=== PATIENT | female | born 1975 | race African-American/Black ===

== ENCOUNTER 2016-12-27 13:44 | Inpatient (IN) | payer OTHER ==
[2016-12-27] MEDS ORDERED: ACETAMINOPHEN 325 MG TABLET (FP) PO ONE (14:41)
[2016-12-27 14:56] LABS: URINE APPEARANCE SLCLOUDY; URINE BILIRUBIN NEGATIVE (NEGATIVE); URINE COLOR YELLOW; URINE GLUCOSE (UA) NEGATIVE (NEGATIVE); URINE KETONE 1+ (NEGATIVE); URINE NITRITE NEGATIVE (NEGATIVE); URINE UROBILINOGEN NEGATIVE E.U./dl (0.2-1.0)
[2016-12-27 15:12] LABS: URINE BLOOD 3+ (NEGATIVE); URINE LEUK ESTERASE 1+ (NEGATIVE); URINE PROTEIN 2+ (NEGATIVE)
[2016-12-27] MEDS ORDERED: SODIUM CHLORIDE 1,000 ML IV STA ×3 (15:33→21:32)
[2016-12-27 15:41] LABS: URINE HYALINE CAST 5 /lpf; URINE MUCUS RARE; URINE RBC 134 /hpf (0-3); URINE WBC 24 /hpf (3-5)
--- NOTE | 2016-12-27 15:43 | PDOC ---
History of Present Illness - General Chief Complaint: Pain, Acute Stated Complaint: FEVER PELVIC PAIN Time Seen by Provider: 12/27/16 14:58 History Source: Patient Exam Limitations: No Limitations - History of Present Illness Travel History: No Initial Comments: 12/27/16 15:53 41-year-old female initially seen in fast track complaining of fever, flank pain , dysuria, now with CVA tenderness. Patient states had went to her [facility]ER[facility] was initially going to treat her but when patient was found to have CVA tenderness with fever she decided to send patient to the ER for further evaluation. Patient states has had a urinary tract infection in the past over 6 years ago which responded to antibiotics and denies any admission. Patient states no medical history and denies any irregular menses or vaginal discharge. Patient denies renal colic or diabetes. Timing/Duration: reports: constant, getting worse Quality: reports: moderate, cramping Abdominal Pain Onset Location: reports: flank (left) Pain Radiation: reports: no radiation Activities at Onset: reports: none Aggravating Factors: improves with: None Alleviating Factors: improves with: None Past History - Past Medical History Allergies/Adverse Reactions: Allergies Allergy/AdvReac Type Severity Reaction Status Date / Time No Known Allergies Allergy Verified 12/27/16 13:48 Home Medications: Ambulatory Orders Iron 1 tab PO DAILY 12/28/16 Vitamin C 1 tab PO DAILY 12/28/16 Other medical history: FIBROIDS - Reproductive History LMP Normal: Yes Is Patient Now?: No - Psycho/Social/Smoking Cessation Hx Suicidal Ideation: No Smoking History: Never smoked Hx Alcohol Use: Yes (OCCASIONALLY) Drug/Substance Use Hx: No Substance Use Type: Marijuana Patient Lives Alone: No Lives with/in: spouse/SO Review of Systems - Review of Systems Able to Perform ROS?: Yes Constitutional: Yes: Chills, Fever HEENTM: No: Symptoms Reported Cardiac (ROS): No: Symptoms Reported ABD/GI: Yes: Nausea (mild), Abdominal cramping : Yes: Dysuria, Frequency, Flank Pain (left) Musculoskeletal: No: Symptoms Reported Integumentary: No: Symptoms Reported Neurological: No: Symptoms reported Endocrine: No: Symptoms Reported Hematologic/Lymphatic: No: Symptoms Reported *Physical Exam - Vital Signs Last Vital Signs Temp Pulse Resp BP Pulse Ox 101.5 F H 140 H 18 128/77 98 12/27/16 13:48 12/27/16 13:48 12/27/16 13:48 12/27/16 13:48 12/27/16 13:48 - Physical Exam General Appearance: Yes: Nourished, Appropriately Dressed. No: Apparent Distress HEENT: negative: Pale Conjunctivae Neck: positive: Supple Respiratory/Chest: positive: Lungs Clear, Normal Breath Sounds. negative: Respiratory Distress, Accessory Muscle Use Cardiovascular: positive: Regular Rhythm, Tachycardia. negative: Murmur Gastrointestinal/Abdominal: positive: Soft, Tenderness (left flank) Musculoskeletal: positive: CVA Tenderness (L) Extremity: positive: Normal Capillary Refill. negative: Pedal Edema Integumentary: positive: Normal Color, Warm, Moist Neurologic: positive: Motor Strength 5/5 (ambulatory) ED Treatment Course - LABORATORY CBC & Chemistry Diagram: 12/28/16 06:00 12/28/16 06:00 - ADDITIONAL ORDERS Additional order review: Laboratory Results 12/27/16 14:33 Urine Color Yellow Urine Appearance Slcloudy Urine pH 5.0 Ur Specific [place] 1.019 Urine Protein 2+ H Urine Glucose (UA) Negative Urine Ketones 1+ H Urine Blood 3+ H Urine Nitrite Negative Urine Bilirubin Negative Urine Urobilinogen Negative Ur Leukocyte Esterase 1+ H Urine HCG, Qual Negative - RADIOLOGY Radiology Studies Ordered: Category Date Time Status SPIRAL- RENAL-STONE CT [CT] Stat CT Scan 12/27/16 15:33 Ordered - Medications Given in the ED: ED Medications Discontinued Medications Generic Name Dose Route Start Last Admin Trade Name Freq PRN Reason Stop Dose Admin Acetaminophen 650 mg 12/27/16 14:41 12/27/16 14:43 Tylenol - PO 12/27/16 14:42 650 mg ONCE ONE Administration Medical Decision Making - Medical Decision Making 12/27/16 15:56 Patient with urinary complaints now with left CVA tenderness and fever. Patient has no history of immunosuppression and concerning for pilonidal. Patient ordered for basic labs, fluids, IV Levaquin with cultures. 12/27/16 16:58 Laboratory Tests 12/27/16 14:33 Urine Protein 2+ H Urine Ketones 1+ H Urine Blood 3+ H Urine Urobilinogen Negative Ur Leukocyte Esterase 1+ H Urine RBC 134 Urine WBC 24 Urine HCG, Qual Negative patient is currently menstruating. 12/27/16 18:09 Laboratory Tests 12/27/16 12/27/16 12/27/16 16:51 16:51 16:55 WBC 20.3 H Hgb 9.8 L Hct 29.8 L Neutrophils % 75.8 Monocytes % 13.9 H Sodium Pending Potassium Pending Chloride Pending Carbon Dioxide Pending Anion Gap Pending BUN Pending Creatinine Pending Random Glucose Pending Lactic Acid 1.320 AST Pending ALT Pending Due to elevated white count, fever and tachycardia along with clinical presentation I have recommended the patient be admitted to observation at least. Patient states does not want to stay. Case also discussed with hospitalist who states patient should actually be an admission secondary meeting sepsis criteria. Patient will discuss our medical recommendations. 12/27/16 18:21 Repeat vitals done patient still slightly tachycardic at 102. Patient ordered for second bag of IV fluid and will be admitted to [facility] under the hospitalist. Case discussed with Dr. Medina and accepted the patient *DC/Admit/Observation/Transfer Diagnosis at time of Disposition: Pyelonephritis Sepsis Qualifiers: Sepsis type: sepsis due to unspecified organism Qualified Code(s): A41.9 - Sepsis, unspecified organism - Discharge Dispostion Admit: Yes
[2016-12-27] MEDS ORDERED: LEVOFLOXACIN 750 MG IVPB 150 ML IVPB ONE ×2 (15:50→16:40)
[2016-12-27 17:40] LABS: BASOPHIL 0.3 % (0-2.0); MCHC 32.9 g/dl (32.0-36.0); MEAN CELL VOLUME 85.1 fl (80-96); MEAN PLT VOLUME 8.9 fl (7.5-11.1); NEUTROPHILS 75.8 % (42.8-82.8); PLATELET COUNT 317 K/MM3 (134-434); RDW 14.6 % (11.6-15.6); WHITE BLOOD COUNT 20.3 K/mm3 (4.0-10.0)
[2016-12-27] MEDS ORDERED: oxyCODONE HCL 5 MG TABLET PO PRN (20:10)
[2016-12-27] MEDS ORDERED: ZOLPIDEM TARTRATE 5 MG TABLET PO PRN (20:10)
--- NOTE | 2016-12-27 20:19 | PN ---
<Manuel Morrissey - Last Filed: 12/27/16 20:19> Teaching Attending Note Name of Resident: Cedric Machuca ATTENDING PHYSICIAN STATEMENT I saw and evaluated the patient. I reviewed the resident's note and discussed the case with the resident. I agree with the resident's findings and plan as documented. SUBJECTIVE: OBJECTIVE: ASSESSMENT AND PLAN: <Aidan Allen - Last Filed: 12/27/16 21:46> Teaching Attending Note ATTENDING PHYSICIAN STATEMENT I saw and evaluated the patient. I reviewed the resident's note and discussed the case with the resident. I agree with the resident's findings and plan as documented. SUBJECTIVE: Patient is a 41-year-old female initially with a past medical history of fibroids and UTIs who presented with fever and tenderness to her left flank. The patient stated that she had gone to her [employer] to treat dysuria and UTI symptoms. Patient stated that when she presented to her [employer] she was found to have CVA tenderness with and fever and was sent to the ER for further evaluation. Patient stated that she has had a urinary tract infections in the past in which responded to antibiotics. Patient reports that she is currently on menses but denied any medical history of irregular menses or vaginal discharge. OBJECTIVE: Vital Signs: Last Vital Signs Temp Pulse Resp BP Pulse Ox 99.2 F 99 H 17 127/87 99 12/27/16 18:23 12/27/16 19:05 12/27/16 19:05 12/27/16 19:05 12/27/16 19:05 Physical Exam: GEN: NAD HEENT: NCAT, PERRL CARD: RRR, S1 S2 RESP: CTAB ABD: Lower abdominal tenderness, BWS x4 EXT: - CCE Labs: CBCD WBC 20.3 K/mm3 (4.0-10.0) H 12/27/16 16:51 RBC 3.50 M/mm3 (3.60-5.2) L 12/27/16 16:51 Hgb 9.8 GM/dL (10.7-15.3) L 12/27/16 16:51 Hct 29.8 % (32.4-45.2) L 12/27/16 16:51 MCV 85.1 fl (80-96) 12/27/16 16:51 MCHC 32.9 g/dl (32.0-36.0) 12/27/16 16:51 RDW 14.6 % (11.6-15.6) 12/27/16 16:51 Plt Count 317 K/MM3 (134-434) 12/27/16 16:51 MPV 8.9 fl (7.5-11.1) 12/27/16 16:51 ASSESSMENT AND PLAN: Patient is a 41-year-old female initially with a PMHx of fibroids who presented with fever and tenderness to her left flank. 41 YOF who presented with fever and left flank pain being admitted for sepsis 1.Sepsis most likely due to pyelonephritis -Stat CMP -POMPA culture -Zosyn 3.375 Q6H if creatinine normal -Repeat lactic acid -IVF 2. Normocytic anemia -Iron studies 3. DVT PPX -SCDs Admit to med surg. Documentation prepared by Aidan Allen, acting as medical care evaluation specialist for Dr. Manuel Morrissey MD.
--- NOTE | 2016-12-27 20:33 | HP ---
CHIEF COMPLAINT: burning urination and fever/. PCP: HISTORY OF PRESENT ILLNESS: 41 yo F with no sign PMHx presents with 4 day history of burning urination and fevers. She Initially noticed symptoms last week on . 12/22/16. She had just started he menses and had some accompanying dysuria. She has had UTI in past and knew the symptoms. She tried OTC AZO with minimal relief. She made an appointment to see PCP and found to have UTI with fevers and CVA tendernes and sent directly to ER. She is currently menstruating Denies CP,HINTON, SOB, abdominal pain, n/v. ER course was notable for: (1)UA shows UTI (2)Sepsis criteria met - WBC 20.3, HR 140, 101.4 + UTI (3)UC and BC sent Recent Travel: Denies PAST MEDICAL HISTORY: Uterine fibroids. PAST SURGICAL HISTORY: D&C Social History: Smoking: NO Alcohol: Glass of wine daily Drugs: NO Family History: Allergies No Known Allergies Allergy (Verified 12/27/16 13:48) HOME MEDICATIONS: Home Medications Medication Instructions Recorded Multivitamin [Poly-Vitamin] 1 each PO DAILY 12/27/16 REVIEW OF SYSTEMS CONSTITUTIONAL: (+)fever, chills, diaphoresis Absent: , generalized weakness, malaise, loss of appetite, weight change HEENT: Absent: rhinorrhea, nasal congestion, throat pain, throat swelling, difficulty swallowing, mouth swelling, ear pain, eye pain, visual changes CARDIOVASCULAR: Absent: chest pain, syncope, palpitations, irregular heart rate, lightheadedness , peripheral edema RESPIRATORY: Absent: cough, shortness of breath, dyspnea with exertion, orthopnea, wheezing, stridor, hemoptysis GASTROINTESTINAL: Absent: abdominal pain, abdominal distension, nausea, vomiting, diarrhea, constipation, melena, hematochezia GENITOURINARY: (+)dysuria, frequency,flank pain Absent: , urgency, hesitancy, hematuria, , genital pain MUSCULOSKELETAL: Absent: myalgia, arthralgia, joint swelling, back pain, neck pain SKIN: Absent: rash, itching, pallor HEMATOLOGIC/IMMUNOLOGIC: Absent: easy bleeding, easy bruising, lymphadenopathy, frequent infections ENDOCRINE: Absent: unexplained weight gain, unexplained weight loss, heat intolerance, cold intolerance NEUROLOGIC: Absent: headache, focal weakness or paresthesias, dizziness, unsteady gait, seizure, mental status changes, bladder or bowel incontinence PSYCHIATRIC: Absent: anxiety, depression, suicidal or homicidal ideation, hallucinations. PHYSICAL EXAMINATION Vital Signs - 24 hr 12/27/16 12/27/16 18:23 19:05 Temperature 99.2 F Pulse Rate [ 102 H 99 H Left] Respiratory 16 17 Rate Blood Pressure 123/79 127/87 [Arm] O2 Sat by Pulse 99 99 Oximetry (%) GENERAL: Awake, alert, and fully oriented, in no acute distress. HEAD: Normal with no signs of trauma. EYES: Pupils equal, round and reactive to light, extraocular movements intact, sclera anicteric, conjunctiva clear. No lid lag. EARS, NOSE, THROAT: Ears normal, nares patent, oropharynx clear without exudates. Moist mucous membranes. NECK: Normal range of motion, supple without lymphadenopathy, JVD, or masses. LUNGS: Breath sounds equal, clear to auscultation bilaterally. No wheezes, and no crackles. No accessory muscle use. HEART: Regular rate and rhythm, normal S1 and S2 without murmur, rub or gallop. ABDOMEN: Soft, nontender, not distended, normoactive bowel sounds, no guarding, no rebound, no masses. No hepatomegaly or splenomegaly. MUSCULOSKELETAL: Normal range of motion at all joints. No bony deformities or tenderness. No CVA tenderness. UPPER EXTREMITIES: 2+ pulses, warm, well-perfused. No cyanosis. No clubbing. Cap refill <2 seconds. No peripheral edema. LOWER EXTREMITIES: 2+ pulses, warm, well-perfused. No calf tenderness. No peripheral edema. NEUROLOGICAL: Cranial nerves II-XII intact. Normal speech. Normal gait. PSYCHIATRIC: Cooperative. Good eye contact. Appropriate mood and affect. SKIN: Warm, dry, normal turgor, no rashes or lesions noted. ASSESSMENT/PLAN: 41 yo F with no sign PMHx admitted for sepsis 2/2 pyelonephritis. Problem List - Problem (1) Pyelonephritis Assessment/Plan: * IVF NS @125ml/hr * pain control with Oxycodone 5mg Q4hr * Repeat CMP in AM * One time dose of Zosyn ordered * Consulted Dr. Mendoza ID. (2) Sepsis Assessment/Plan: * IVF NS @125ml/hr * repeat Lactic Acid in AM * Quintanilla Culture * ID consulted * Zosyn x1 given * tylenol prn fever. (3) DVT prophylaxis Assessment/Plan: * Heparin 5000 units SQ BID. Visit type - Emergency Visit Emergency Visit: Yes ED Registration Date: 12/27/16 Care time: The patient presented to the Emergency Department on the above date and was hospitalized for further evaluation of their emergent condition. - New Patient This patient is new to me today: Yes Date on this admission: 12/28/16 - Critical Care Critical Care patient: No
[2016-12-27 21:04] LABS: ALK PHOS 65 U/L (45-117); ANION GAP 10 (8-16); BILIRUBIN,TOTAL 0.3 mg/dL (0.2-1.0); CALCIUM 8.3 mg/dL (8.5-10.1); CO2 25 mmol/L (21-32); GLUCOSE,RANDOM 90 mg/dL (74-106); SGOT/AST 12 U/L (15-37); SGPT/ALT 18 U/L (12-78); TOT PROT 7.3 g/dl (6.4-8.2)
[2016-12-27] MEDS ORDERED: PIPERACILLIN/TAZOB 4.5 GM/100 ML PRE-DOCKED IVPB ONE (22:00)
[2016-12-27] MEDS ORDERED: HEPARIN NA (PORCINE) 5,000 UNITS/ML 1ML VIAL SQ SCH (22:00)
[2016-12-27] MEDS ORDERED: DOCUSATE SODIUM 100 MG CAPSULE (FP) PO ONE (22:43)
[2016-12-27] MEDS ORDERED: HEPARIN NA (PORCINE) 5,000 UNITS/ML 1ML VIAL ONE (22:43)
[2016-12-27] MEDS ORDERED: PIPERACILLIN/TAZOB 4.5 GM 100 ML IVPB ONE (22:44)
[2016-12-27] MEDS: DOCUSATE SODIUM 100 MG CAPSULE (FP) PO SCH (23:58)
[2016-12-28] MEDS ORDERED: ACETAMINOPHEN 325 MG TABLET (FP) ONE (01:17)
[2016-12-28 02:46] LABS: ALBUMIN 2.9 g/dl (3.4-5.0); ALK PHOS 61 U/L (45-117); ANION GAP 8 (8-16); BILIRUBIN,TOTAL 0.4 mg/dL (0.2-1.0); CALCIUM 8.1 mg/dL (8.5-10.1); CO2 27 mmol/L (21-32); CREATININE 0.8 mg/dL (0.55-1.02); GLUCOSE,RANDOM 89 mg/dL (74-106); SGOT/AST 14 U/L (15-37); SGPT/ALT 15 U/L (12-78)
[2016-12-28] MEDS: SODIUM CHLORIDE 1,000 ML IV SCH ×2 (03:58→13:58)
[2016-12-28 04:19] VITALS: BMI 28.4
[2016-12-28 07:52] LABS: BASOPHIL 0.3 % (0-2.0); EOSINOPHIL 0.1 % (0-4.5); MCH 27.8 pg (25.7-33.7); MCHC 32.7 g/dl (32.0-36.0); MEAN CELL VOLUME 85.1 fl (80-96); MEAN PLT VOLUME 8.5 fl (7.5-11.1); NEUTROPHILS 74.1 % (42.8-82.8); PLATELET COUNT 283 K/MM3 (134-434); RDW 14.7 % (11.6-15.6); WHITE BLOOD COUNT 12.9 K/mm3 (4.0-10.0)
[2016-12-28 08:19] LABS: ALBUMIN 2.6 g/dl (3.4-5.0); ALK PHOS 51 U/L (45-117); ANION GAP 9 (8-16); BILIRUBIN,TOTAL 0.3 mg/dL (0.2-1.0); CALCIUM 7.8 mg/dL (8.5-10.1); CO2 25 mmol/L (21-32); CREATININE 0.7 mg/dL (0.55-1.02); GLUCOSE,RANDOM 84 mg/dL (74-106); MAGNESIUM 2.2 mg/dL (1.8-2.4); PHOSPHOROUS 2.4 mg/dL (2.5-4.9); SGOT/AST 13 U/L (15-37); SGPT/ALT 17 U/L (12-78); TOT PROT 6.6 g/dl (6.4-8.2)
[2016-12-28] MEDS: DOCUSATE SODIUM 100 MG CAPSULE (FP) PO SCH ×2 (10:49→21:51)
--- NOTE | 2016-12-28 11:11 | PN ---
Progress Note (short form) - Note Progress Note: ID Consult dictated UTI/ Sepsis secondary to UTI Probable acute L pyelonephritis Leukocytosis Await c/s Empiric cefepime Renal sonogram
[2016-12-28] MEDS ORDERED: CEFEPIME HCL 2 GM VIAL (RESTRICTED TO ID) IVPB SCH (11:15)
[2016-12-28] MEDS: CEFEPIME 2 GM in DEXTROSE 5%-WATER - 100 ML IVPB SCH ×2 (12:30→17:54)
[2016-12-28] MEDS: ACETAMINOPHEN 325 MG TABLET (FP) PO PRN ×2 (13:58→22:35)
--- NOTE | 2016-12-28 14:10 | CONS ---
DATE OF CONSULTATION: DATE OF DICTATION: 12/28/2016 The patient is a 41-year-old female, previously healthy, evaluated for pyelonephritis. The patient had developed symptoms of urinary tract infection 4 to 5 days ago. She began to experience some dysuria, as well as some left flank discomfort, and subjective fever. 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 She was referred to the emergency room for further evaluation. In the emergency room, the patient was noted to have a fever of 101.5, white blood cell count of 20,000, urinalysis with pyuria. She was empirically treated with Levaquin and Zosyn. The urine culture is now growing a non-lactose dredge mechanic. The patient has been previously healthy. She reports having a urinary tract infection years ago. She is nondiabetic. PAST MEDICAL HISTORY: Positive for uterine fibroids. ALLERGIES: No known allergies. MEDICATIONS: Include Tylenol, Ambien, Colace, oxycodone, Levaquin, Zosyn. SOCIAL HISTORY: She lives at home. 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 Nonsmoker. Occasional EtOH. SYSTEMS REVIEW: Neurologic: No loss of consciousness, seizure activity, focal weakness. Cardiac: Negative chest pain or palpitations. Respiratory: Negative cough or sputum production. Gastrointestinal: Negative vomiting or diarrhea. Genitourinary: As per HPI. LABORATORY DATA: White count on admission 20.3, presently 12.9, hematocrit 26.9, platelets 283. Urinalysis 24 white cells. Blood culture is pending. Urine culture: Non-lactose dredge mechanic. PHYSICAL EXAMINATION: General: On physical examination, she is awake and alert. She is in no acute distress. Not acutely toxic appearing. Vital signs: Temperature 98.4, T-max 101.5; blood pressure 119/73; pulse 101 and regular; respirations 20 per minute. Eyes: Sclerae are anicteric. Heart: Heart sounds S1, S2. Lungs: Clear. Abdomen: Soft. No tenderness elicited. No mass, rebound or rigidity. Positive left CVA tenderness. Extremities: Negative for edema. IMPRESSION: 1. Urinary tract infection/sepsis secondary to urinary tract infection. 2. Probable acute left pyelonephritis. 3. Leukocytosis. Await blood and urine culture results. Empiric antibiotic coverage with cefepime 2 g IV piggyback every 8 hours. IV fluid hydration. Renal sonogram to rule out hydronephrosis or perinephric abscess. Case discussed with the patient's mother present at the time of examination. Thank you for the kind referral. YOANNA SHANKS M.D. [id number]
--- NOTE | 2016-12-28 15:27 | PN ---
Teaching Attending Note Name of Resident: Em Bolanos ATTENDING PHYSICIAN STATEMENT I saw and evaluated the patient. I reviewed the resident's note and discussed the case with the resident. I agree with the resident's findings and plan as documented. SUBJECTIVE:C/O mild left flank pain OBJECTIVE: Vital Signs - 24 hr 12/27/16 12/27/16 12/28/16 18:23 19:05 03:11 Temperature 99.2 F 99.3 F Pulse Rate Pulse Rate [ 102 H 99 H 87 Left] Respiratory 16 17 18 Rate Blood Pressure Blood Pressure 123/79 127/87 122/75 [Arm] O2 Sat by Pulse 99 99 99 Oximetry (%) 12/28/16 12/28/16 12/28/16 04:06 08:00 14:12 Temperature 98.3 F 98.4 F 99.6 F Pulse Rate 105 H 101 H 105 H Pulse Rate [ Left] Respiratory 16 20 20 Rate Blood Pressure 123/73 119/73 125/73 Blood Pressure [Arm] O2 Sat by Pulse Oximetry (%) Physical Exam: GEN: NAD HEENT: NCAT, PERRL CARD: RRR, S1 S2 RESP: CTAB ABD: Lower abdominal tenderness, BWS x4, Left CVA tenderness EXT: - CCE ASSESSMENT AND PLAN: 41 year old with sepsis secondary to acute pyelonephritis, responded to initial management with IV Levaquin , afebrile , leukocytosis is improving . A/b are changed to IV cefepime Plan to D/C tomorrow if remains afebrile and final culturea are reported. Discussed with patient
--- NOTE | 2016-12-28 15:58 | PN ---
Physical Exam: SUBJECTIVE: Patient seen and examined. She is complaining of left flank pain. She denies fever, chills, abdominal pain, chest pain, SOB, dysuria. OBJECTIVE: Vital Signs Period Temp Pulse Resp BP Sys/Mann Pulse Ox Last 24 Hr 98.3 F-99.6 F 87-105 16-20 119-127/73-87 99-99 GENERAL: The patient is awake, alert, and fully oriented, in no acute distress. HEAD: Normal with no signs of trauma. EYES: extraocular movements intact, sclera anicteric, conjunctiva clear. ENT: oropharynx clear without exudates, moist mucous membranes. NECK: Trachea midline, supple. LUNGS: Breath sounds equal, clear to auscultation bilaterally, no wheezes, no crackles, no accessory muscle use. HEART: Regular rate and rhythm, S1, S2 without murmur, rub or gallop. ABDOMEN: Soft, nontender, nondistended, normoactive bowel sounds, no guarding, no rebound, mild CVA tenderness on left side. EXTREMITIES: no edema. NEUROLOGICAL: Normal speech, gait not observed. PSYCH: Normal mood, normal affect. SKIN: Warm, dry, normal turgor, no rashes or lesions noted. Laboratory Results - last 24 hr 12/28/16 12/28/16 12/28/16 01:56 06:00 06:00 WBC 12.9 H D RBC 3.16 L Hgb 8.8 L D Hct 26.9 L MCV 85.1 MCHC 32.7 RDW 14.7 Plt Count 283 MPV 8.5 Neutrophils % 74.1 Lymphocytes % 12.0 Monocytes % 13.5 H Eosinophils % 0.1 D Basophils % 0.3 Sodium 139 141 Potassium 4.3 4.2 Chloride 104 107 Carbon Dioxide 27 25 Anion Gap 8 9 BUN 7 D 7 Creatinine 0.8 0.7 Creat Clearance w eGFR > 60 > 60 Random Glucose 89 84 Lactic Acid Calcium 8.1 L 7.8 L Phosphorus 2.4 L Magnesium 2.2 Total Bilirubin 0.4 D 0.3 D AST 14 L 13 L ALT 15 17 Alkaline Phosphatase 61 51 Total Protein 7.0 6.6 Albumin 2.9 L 2.6 L 12/28/16 06:00 WBC RBC Hgb Hct MCV MCHC RDW Plt Count MPV Neutrophils % Lymphocytes % Monocytes % Eosinophils % Basophils % Sodium Potassium Chloride Carbon Dioxide Anion Gap BUN Creatinine Creat Clearance w eGFR Random Glucose Lactic Acid 0.999 Calcium Phosphorus Magnesium Total Bilirubin AST ALT Alkaline Phosphatase Total Protein Albumin Active Medications Generic Name Dose Route Start Last Admin Trade Name Freq PRN Reason Stop Dose Admin Acetaminophen 650 mg 12/27/16 20:10 12/28/16 13:58 Tylenol - PO 650 mg Q4H PRN Administration FEVER OR PAIN Docusate Sodium 100 mg 12/27/16 22:00 12/28/16 10:49 Colace - PO Not Given BID ANGELES Sodium Chloride 1,000 mls @ 125 mls/hr 12/28/16 04:00 12/28/16 13:58 Normal Saline - IV 125 mls/hr ASDIR ANGELES Administration Cefepime HCl 2 gm/ Dextrose 100 mls @ 200 mls/hr 12/28/16 12:30 IVPB Q8H-IV ANGELES Oxycodone HCl 5 mg 12/27/16 20:10 Roxicodone - PO Q6H PRN PAIN Zolpidem Tartrate 5 mg 12/27/16 20:10 Ambien - PO HS PRN INSOMNIA ASSESSMENT/PLAN: 41 yo F with no sign PMHx admitted for sepsis 2/2 pyelonephritis. Sepsis due to pyelonephritis: -IVF NS @125ml/hr -pain control with Oxycodone 5mg Q4hr -Repeat CMP in AM -Consulted Dr. Mendoza ID, will continue Cefepime 2 g DAILY -LA nl -Qu[place]anilla Culture pending -pain control F/E/N: NS/No changes/Regular DVT PPX: -Heparin 5000 units SQ BID. Disposition: Discharge tomorrow if afebrile Problem List - Problems (1) Pyelonephritis Code(s): N12 - TUBULO-INTERSTITIAL NEPHRITIS, NOT SPCF ACUTE OR CHRONIC (2) Sepsis Code(s): A41.9 - SEPSIS, UNSPECIFIED ORGANISM Qualifiers: Sepsis type: sepsis due to unspecified organism Qualified Code(s): A41.9 - Sepsis, unspecified organism (3) DVT prophylaxis Code(s): [id number] - Visit type - Emergency Visit Emergency Visit: Yes ED Registration Date: 12/27/16 Care time: The patient presented to the Emergency Department on the above date and was hospitalized for further evaluation of their emergent condition. - New Patient This patient is new to me today: Yes Date on this admission: 12/28/16 - Critical Care Critical Care patient: No - Discharge Referral Referred to [facility] Med P.C.: No
--- NOTE | 2016-12-28 16:05 | EKG ---
Test Reason : Blood Pressure : / mmHG Vent. Rate : 094 BPM Atrial Rate : 094 BPM P-R Int : 154 ms QRS Dur : 094 ms QT Int : 366 ms P-R-T Axes : 041 028 025 degrees QTc Int : 457 ms NORMAL SINUS RHYTHM POSSIBLE LEFT ATRIAL ENLARGEMENT BORDERLINE ECG NO PREVIOUS ECGS AVAILABLE Confirmed by QUINTON BLAKELY, YOUNG ([id number]) on 12/28/2016 4:05:04 PM Referred By: Confirmed By:YOUNG ALCANTARA MD
[2016-12-29] MEDS: CEFEPIME 2 GM in DEXTROSE 5%-WATER - 100 ML IVPB SCH ×3 (01:45→18:13)
[2016-12-29] MEDS: SODIUM CHLORIDE 1,000 ML IV SCH ×2 (05:13→18:14)
[2016-12-29 07:33] LABS: MCH 28.3 pg (25.7-33.7); MCHC 33.1 g/dl (32.0-36.0); MEAN CELL VOLUME 85.4 fl (80-96); MEAN PLT VOLUME 8.3 fl (7.5-11.1); PLATELET COUNT 313 K/MM3 (134-434); RDW 14.8 % (11.6-15.6); WHITE BLOOD COUNT 6.5 K/mm3 (4.0-10.0)
[2016-12-29 07:42] LABS: CALCIUM 7.8 mg/dL (8.5-10.1); CREATININE 0.6 mg/dL (0.55-1.02)
--- NOTE | 2016-12-29 09:37 | PN ---
Progress Note, Physician History of Present Illness: Feeling better C/O menstrual cramps No dysuria Less L flank pain No c/o fever/ chills Temps down- afebrile WBC WNL BC no growth Urine c/s NLF Renal sonogram mild L HN - Current Medication List Current Medications: Active Medications Acetaminophen (Tylenol -) 650 mg PO Q4H PRN PRN Reason: FEVER OR PAIN Last Admin: 12/28/16 22:35 Dose: 650 mg Docusate Sodium (Colace -) 100 mg PO BID [facility] Last Admin: 12/28/16 21:51 Dose: 100 mg Sodium Chloride (Normal Saline -) 1,000 mls @ 125 mls/hr IV ASDIR ANGELES Last Admin: 12/29/16 05:13 Dose: 125 mls/hr Cefepime HCl 2 gm/ Dextrose 100 mls @ 200 mls/hr IVPB Q8H-IV ANGELES Last Admin: 12/29/16 01:45 Dose: 200 mls/hr Oxycodone HCl (Roxicodone -) 5 mg PO Q6H PRN PRN Reason: PAIN Zolpidem Tartrate (Ambien -) 5 mg PO HS PRN PRN Reason: INSOMNIA - Objective Vital Signs: Vital Signs Temperature 98.3 F 12/29/16 08:00 Pulse Rate 94 H 12/29/16 08:00 Respiratory Rate 16 12/29/16 08:00 Blood Pressure 129/90 12/29/16 08:00 O2 Sat by Pulse Oximetry (%) 100 12/28/16 20:45 Constitutional: Yes: No Distress Eyes: Yes: Conjunctiva Clear Cardiovascular: Yes: Regular Rate and Rhythm, S1, S2 Respiratory: Yes: CTA Bilaterally Gastrointestinal: Yes: Normal Bowel Sounds, Soft. No: Tenderness Genitourinary: Yes: CVA Tenderness - Left. No: CVA Tenderness - Right Edema: No Labs: CBC, BMP 12/29/16 06:00 12/29/16 06:00 Assessment/Plan Acute L pyelonephritis UTI/ Sepsis secondary to UTI NLF Fever/ leukocytosis- improved Await final urine c/s Continue empiric cefepime pending c/s Urology evaluation L HN Discussed with Dr Arredondo (hospitalist)
[2016-12-29] MEDS: DOCUSATE SODIUM 100 MG CAPSULE (FP) PO SCH ×2 (09:42→22:28)
[2016-12-29] MEDS: ACETAMINOPHEN 325 MG TABLET (FP) PO PRN ×2 (13:24→22:28)
--- NOTE | 2016-12-29 15:08 | DS ---
Physical Exam: SUBJECTIVE: Patient seen and examined. She is feeling good today. She denies flank pain, dysuria, increased frequency, urgency, fever, chills. OBJECTIVE: Vital Signs Period Temp Pulse Resp BP Sys/Mann Pulse Ox Last 24 Hr 97.9 F-100.5 F 86-103 16-20 113-129/61-90 100 PHYSICAL EXAM GENERAL: The patient is awake, alert, and fully oriented, in no acute distress. HEAD: Normal with no signs of trauma. EYES:extraocular movements intact, conjunctiva clear. ENT: oropharynx clear without exudates, moist mucous membranes. NECK: Trachea midline, full range of motion, supple. LUNGS: Breath sounds equal, clear to auscultation bilaterally, no wheezes, no crackles, no accessory muscle use. HEART: Regular rate and rhythm, S1, S2 without murmur, rub or gallop. ABDOMEN: Soft, nontender, nondistended, normoactive bowel sounds, no guarding, no rebound. EXTREMITIES: no edema. NEUROLOGICAL: Normal speech, gait not observed. PSYCH: Normal mood, normal affect. SKIN: Warm, dry, normal turgor, no rashes or lesions noted. LABS Laboratory Results - last 24 hr 12/29/16 12/29/16 06:00 06:00 WBC 6.5 D RBC 2.94 L Hgb 8.3 L Hct 25.1 L MCV 85.4 MCHC 33.1 RDW 14.8 Plt Count 313 MPV 8.3 Sodium 142 Potassium 4.3 Chloride 109 H Carbon Dioxide 27 Anion Gap 6 L BUN 5 L D Creatinine 0.6 Random Glucose 88 Calcium 7.8 L HOSPITAL COURSE: Date of Admission:12/27/16 Date of Discharge: 12/29/16 Minutes to complete discharge: 45 Discharge Summary Reason For Visit: PYELONEPHRITIS/SEPSIS Current Active Problems DVT prophylaxis (Acute) Pyelonephritis (Acute) Sepsis (Acute) Hospital Course: 41 yo F with no PMHx presents with 4 day history of burning with urination and fever. She Initially noticed symptoms last week. She had just started menstruating and had some accompanying dysuria. She has had UTI in past and knew the symptoms. She tried OTC AZO with minimal relief. She made an appointment to see PCP and found to have UTI with fever and CVA tendernes and sent directly to ER. Denies CP, HINTON, SOB, abdominal pain, n/v. Hospital course; Sepsis due to pyelonephritis: she med sepsis criteria, UA was positive for infection, blood cultures and urine cultures were sent, IVF-NS was started, ID consulted and started on antibiotics.The pt had US of her kidneys done which visualized left kidney hydronephrosis. She improved clinically. we recommended 3 more days of Levofloxacin 750 mg PO qd and f/u with urologist as outpatient. Condition: Improved - Instructions Diet, Activity, Other Instructions: Please see your primary care physician and Urologist in a week. Take antibiotics once a day for 3 days. If you have fever, chills, pain, burning with urination, dizziness come to Emergency Room as soon as possible. Referrals: Desmond Edwards MD [Staff Physician] - Disposition: HOME - Home Medications Comprehensive Discharge Medication List: Ambulatory Orders Iron 1 tab PO DAILY 12/28/16 Vitamin C 1 tab PO DAILY 12/28/16 Levofloxacin 750 mg PO DAILY #3 tablet 12/29/16 Problem List - Problems (1) Pyelonephritis Code(s): N12 - TUBULO-INTERSTITIAL NEPHRITIS, NOT SPCF ACUTE OR CHRONIC (2) Sepsis Code(s): A41.9 - SEPSIS, UNSPECIFIED ORGANISM Qualifiers: Sepsis type: sepsis due to unspecified organism Qualified Code(s): A41.9 - Sepsis, unspecified organism (3) DVT prophylaxis Code(s): [id number] - This patient is new to me today: No Emergency Visit: Yes ED Registration Date: 12/27/16 Care time: The patient presented to the Emergency Department on the above date and was hospitalized for further evaluation of their emergent condition. Critical Care patient: No - Discharge Referral Referred to [facility] No
--- NOTE | 2016-12-29 15:55 | PN ---
Teaching Attending Note Name of Resident: Em Bolanos ATTENDING PHYSICIAN STATEMENT I saw and evaluated the patient. I reviewed the resident's note and discussed the case with the resident. I agree with the resident's findings and plan as documented. SUBJECTIVE:mild left flank pain , low grade fever OBJECTIVE: Vital Signs Temp 98.7 F 12/29/16 15:12 Pulse 97 H 12/29/16 14:57 Resp 20 12/29/16 14:57 BP 126/85 12/29/16 14:57 Pulse Ox 100 12/29/16 09:00 Intake & Output 12/28/16 12/29/16 12/29/16 23:59 11:59 23:59 Intake Total 2580 1600 500 Balance 2580 1600 500 Intake: IV 1500 1500 Normal Saline - 1,000 ml 1500 1500 @ 125 mls/hr IV ASDIR ANGELES Rx#:[id number] IVPB 100 100 Oral 980 500 Other: Voiding Method Toilet Toilet # Unmeasured Voids Void 2 3 2 Bowel Movement No No No Abd soft , NT Left CVa tenderness ASSESSMENT AND PLAN: 41 year old female with acute pyelonephritis US shows mild hydronephrosis , no stones, which is possibly related to pyelonephritis Had low grade fever will hold d/c c/w IVAB Urology evaluation called
--- NOTE | 2016-12-29 16:28 | PN ---
Physical Exam: SUBJECTIVE: Patient seen and examined. She is feeling good today. She denies flank pain, dysuria, chills, dizziness. OBJECTIVE: Vital Signs Period Temp Pulse Resp BP Sys/Mann Pulse Ox Last 24 Hr 97.9 F-100.5 F 86-103 16-20 113-129/61-90 100-100 GENERAL: The patient is awake, alert, and fully oriented, in no acute distress. HEAD: Normal with no signs of trauma. EYES: extraocular movements intact, sclera anicteric, conjunctiva clear. ENT: oropharynx clear without exudates, moist mucous membranes. NECK: Trachea midline, supple. LUNGS: Breath sounds equal, clear to auscultation bilaterally, no wheezes, no crackles, no accessory muscle use. HEART: Regular rate and rhythm, S1, S2 without murmur, rub or gallop. ABDOMEN: Soft, nontender, nondistended, normoactive bowel sounds, no guarding, no rebound, no CVA tenderness. EXTREMITIES: no edema. NEUROLOGICAL: Normal speech, gait not observed. PSYCH: Normal mood, normal affect. SKIN: Warm, dry, normal turgor, no rashes or lesions noted. Laboratory Results - last 24 hr 12/29/16 12/29/16 06:00 06:00 WBC 6.5 D RBC 2.94 L Hgb 8.3 L Hct 25.1 L MCV 85.4 MCHC 33.1 RDW 14.8 Plt Count 313 MPV 8.3 Sodium 142 Potassium 4.3 Chloride 109 H Carbon Dioxide 27 Anion Gap 6 L BUN 5 L D Creatinine 0.6 Random Glucose 88 Calcium 7.8 L Active Medications Generic Name Dose Route Start Last Admin Trade Name Freq PRN Reason Stop Dose Admin Acetaminophen 650 mg 12/27/16 20:10 12/29/16 13:24 Tylenol - PO 650 mg Q4H PRN Administration FEVER OR PAIN Docusate Sodium 100 mg 12/27/16 22:00 12/29/16 09:42 Colace - PO 100 mg BID ANGELES Administration Sodium Chloride 1,000 mls @ 125 mls/hr 12/28/16 04:00 12/29/16 05:13 Normal Saline - IV 125 mls/hr ASDIR ANGELES Administration Cefepime HCl 2 gm/ Dextrose 100 mls @ 200 mls/hr 12/28/16 12:30 12/29/16 09:41 IVPB 200 mls/hr Q8H-IV ANGELES Administration Oxycodone HCl 5 mg 12/27/16 20:10 Roxicodone - PO Q6H PRN PAIN Zolpidem Tartrate 5 mg 12/27/16 20:10 Ambien - PO HS PRN INSOMNIA ASSESSMENT/PLAN: 41 yo F with no sign PMHx admitted for sepsis 2/2 pyelonephritis. Sepsis due to pyelonephritis: -she has low grade fever and her US shows left hydronephrosis -IVF NS @125ml/hr, pain control with Oxycodone 5mg Q4hr -Repeat CMP in AM , WBC normalized -Consulted Dr. Mendoza ID, will continue Cefepime 2 g DAILY and we held discharge today -urology consult called -Ucx E.Coli, Blood Cx no growth F/E/N: NS/No changes/Regular DVT PPX: -Heparin 5000 units SQ BID. Disposition: Possible discharge tomorrow Problem List - Problems (1) Pyelonephritis Code(s): N12 - TUBULO-INTERSTITIAL NEPHRITIS, NOT SPCF ACUTE OR CHRONIC (2) Sepsis Code(s): A41.9 - SEPSIS, UNSPECIFIED ORGANISM Qualifiers: Sepsis type: sepsis due to unspecified organism Qualified Code(s): A41.9 - Sepsis, unspecified organism (3) DVT prophylaxis Code(s): [id number] - Visit type - Emergency Visit Emergency Visit: Yes ED Registration Date: 12/27/16 Care time: The patient presented to the Emergency Department on the above date and was hospitalized for further evaluation of their emergent condition. - New Patient This patient is new to me today: No - Critical Care Critical Care patient: No - Discharge Referral Referred to [facility] No
[2016-12-30] MEDS ORDERED: PT OWN MED DRAWER 7, Y5N ONE ×2 (01:17→08:56)
[2016-12-30] MEDS: CEFEPIME 2 GM in DEXTROSE 5%-WATER - 100 ML IVPB SCH ×2 (01:27→10:55)
[2016-12-30] MEDS ORDERED: MAGNESIUM HYDROX 2400MG/30ML ORAL SUSPENSION 30 ML CUP PO PRN (09:21)
[2016-12-30] MEDS ORDERED: TAMSULOSIN HCL 0.4 MG CAP.ER.24H (FP) PO SCH (09:50)
[2016-12-30] MEDS ORDERED: ACETAMINOPHEN 1000 MG/100 ML VIAL (NON FORMULARY) IVPB ONE (09:50)
--- NOTE | 2016-12-30 10:33 | CONSULT ---
Consult Consult Specialty:: urology Referred by:: medicine Reason for Consultation:: UTI, stone, hydronephrosis - History of Present Illness Chief Complaint: flank pain History of Present Illness: 41 year old female with one week for flank pain and heavy vaginal bleeding ( from her menses). US showed mild left hydro and CT also showed mild left hydro with ?possible 1mm left UVJ stone. Her initial WBC was 20K, now it is 6. Ur Cx is positive for E coli, price sensitive. She is afebrile with stable vital signs and now is feeling well - History Source History Provided By: Patient, Medical Record Limitations to Obtaining History: No Limitations - Past Medical History Renal/: Yes: Renal Calculi, UTI ...LMP: 12/22/16 ...: No - Alcohol/Substance Use Hx Alcohol Use: Yes (OCCASIONALLY) - Smoking History Smoking history: Never smoked Have you smoked in the past 12 months: No Home Medications - Allergies Allergies/Adverse Reactions: Allergies Allergy/AdvReac Type Severity Reaction Status Date / Time No Known Allergies Allergy Verified 12/27/16 13:48 - Home Medications Home Medications: Ambulatory Orders Iron 1 tab PO DAILY 12/28/16 Vitamin C 1 tab PO DAILY 12/28/16 Levofloxacin 750 mg PO DAILY #3 tablet 12/29/16 Review of Systems - Review of Systems Constitutional: reports: Loss of Appetite Genitourinary: reports: Flank Pain. denies: Hematuria, Incontinence Physical Exam Vital Signs: Vital Signs Temperature 98.8 F 12/30/16 05:54 Pulse Rate 87 12/30/16 05:54 Respiratory Rate 18 12/30/16 05:54 Blood Pressure 115/77 12/30/16 05:54 O2 Sat by Pulse Oximetry (%) 100 12/29/16 09:00 Constitutional: Yes: Well Nourished, No Distress, Calm Gastrointestinal: Yes: Soft Renal/: No: Bladder Distention, CVA Tenderness - Left, CVA Tenderness - Right , Martínez Present, Hematuria Labs: CBC, BMP 12/29/16 06:00 12/29/16 06:00 Imaging - Results Cat Scan: Report Reviewed Ultrasound: Report Reviewed Problem List - Problems (1) Pyelonephritis Assessment/Plan: patient with price sensitive UTI, responding appropriately to antibiotcs. Code(s): N12 - TUBULO-INTERSTITIAL NEPHRITIS, NOT SPCF ACUTE OR CHRONIC (2) Calculus of distal left ureter Assessment/Plan: patient with questionable 1mm stone with mild hydro. No high grade obstruction. No gross evidence of sepsis at this time. Discussed option of ureteral stenting however she is feeling better and wishes to try and pass possible stone. Flomax given. Also complaining of constipation. given MOM. 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 If she develops sepsis will need urgent stenting. Advised her to return if she develops fevers as an outpatient. Code(s): N20.1 - CALCULUS OF URETER
--- NOTE | 2016-12-30 10:54 | PN ---
Progress Note, Physician History of Present Illness: Urology evaluation appreciated CT shows possible stone in distal L ureter Reports less L flank pain No dysuria/ hematuria No fever/ chills WBC WNL Blood c/s no growth - Current Medication List Current Medications: Active Medications Acetaminophen (Tylenol -) 650 mg PO Q4H PRN PRN Reason: FEVER OR PAIN Last Admin: 12/29/16 22:28 Dose: 650 mg Docusate Sodium (Colace -) 100 mg PO BID [facility] Last Admin: 12/29/16 22:28 Dose: 100 mg Sodium Chloride (Normal Saline -) 1,000 mls @ 125 mls/hr IV ASDIR ANGELES Last Admin: 12/29/16 18:14 Dose: 125 mls/hr Cefepime HCl 2 gm/ Dextrose 100 mls @ 200 mls/hr IVPB Q8H-IV [facility] Last Admin: 12/30/16 01:27 Dose: 200 mls/hr Magnesium Hydroxide (Milk Of Magnesia -) 30 ml PO Q8H PRN PRN Reason: INDIGESTION Oxycodone HCl (Roxicodone -) 5 mg PO Q6H PRN PRN Reason: PAIN Last Admin: 12/29/16 22:27 Dose: 5 mg Tamsulosin HCl (Flomax -) 0.4 mg PO DAILY@0830 ANGELES Zolpidem Tartrate (Ambien -) 5 mg PO HS PRN PRN Reason: INSOMNIA - Objective Vital Signs: Vital Signs Temperature 98.8 F 12/30/16 05:54 Pulse Rate 87 12/30/16 05:54 Respiratory Rate 18 12/30/16 05:54 Blood Pressure 115/77 12/30/16 05:54 O2 Sat by Pulse Oximetry (%) 100 12/29/16 09:00 Constitutional: Yes: No Distress Eyes: Yes: Conjunctiva Clear Cardiovascular: Yes: Regular Rate and Rhythm, S1, S2 Respiratory: Yes: CTA Bilaterally Gastrointestinal: Yes: Normal Bowel Sounds, Soft. No: Tenderness Genitourinary: Yes: CVA Tenderness - Left, Other (mild L CVAT) Edema: No Labs: CBC, BMP 12/29/16 06:00 12/29/16 06:00 Assessment/Plan Acute L pyelonephritis- improved Possible L ureteral nephrolith UTI/ Sepsis secondary to UTI E. coli Fever/ leukocytosis- resolved Switch to Levaquin 500mg po daily x 10d Outpatient follow up
[2016-12-30] MEDS: DOCUSATE SODIUM 100 MG CAPSULE (FP) PO SCH (10:55)
[2016-12-30] MEDS ORDERED: LEVOFLOXACIN 500 MG TABLET (FP) PO SCH (11:15)
[2016-12-30 14:43] VITALS: BP 129/84; PULSE 99; TEMP 99.1
--- NOTE | 2016-12-30 15:40 | DS ---
Physical Exam: SUBJECTIVE: Patient seen and examined. She is feeling good. She denies dysuria, fever, chills, flank pain today. OBJECTIVE: Vital Signs Period Temp Pulse Resp BP Sys/Mann Pulse Ox Last 24 Hr 98.1 F-99.1 F 83-99 18-20 115-135/70-84 PHYSICAL EXAM GENERAL: The patient is awake, alert, and fully oriented, in no acute distress. HEAD: Normal with no signs of trauma. EYES: PERRL, extraocular movements intact, sclera anicteric, conjunctiva clear. ENT:oropharynx clear without exudates, moist mucous membranes. NECK: Trachea midline, full range of motion, supple. LUNGS: Breath sounds equal, clear to auscultation bilaterally, no wheezes, no crackles, no accessory muscle use. HEART: Regular rate and rhythm, S1, S2 without murmur, rub or gallop. ABDOMEN: Soft, nontender, nondistended, normoactive bowel sounds, no guarding, no rebound. EXTREMITIES: no edema. NEUROLOGICAL: Normal speech, gait not observed. PSYCH: Normal mood, normal affect. SKIN: Warm, dry, normal turgor, no rashes or lesions noted. LABS HOSPITAL COURSE: Date of Admission:12/27/16 Date of Discharge: 12/30/16 Minutes to complete discharge: 50 Discharge Summary Reason For Visit: PYELONEPHRITIS/SEPSIS Current Active Problems Calculus of distal left ureter (Acute) DVT prophylaxis (Acute) Pyelonephritis (Acute) Sepsis (Acute) Hospital Course: 41 yo F with no sign PMHx presents with 4 day history of burning urination and fevers. She Initially noticed symptoms last week on . 12/22/16. She had just started he menses and had some accompanying dysuria. She has had UTI in past and knew the symptoms. She tried OTC AZO with minimal relief. She made an appointment to see PCP and found to have UTI with fevers and CVA tendernes and sent directly to ER. She is currently menstruating Denies CP,HINTON, SOB, abdominal pain, n/v. Hospital course: Sepsis due to pyelonephritis: low grade fever and her US shows left hydronephrosis, IVF, pain control with Oxycodone, Cefepime IV. Blood cultures were negative. We did US kidney which showed mild hydronephrosis. Urology was consulted. We recommended to f/u with Urologist as outpatient. Condition: Improved - Instructions Diet, Activity, Other Instructions: Please see your primary care physician and Urologist in a week. Take antibiotics once a day for 10 days. Please take Flomax everyday. If you have fever, chills, pain, burning with urination, dizziness come to Emergency Room as soon as possible. Referrals: Desmond Edwards MD [Staff Physician] - Disposition: HOME - Home Medications Comprehensive Discharge Medication List: Ambulatory Orders Iron 1 tab PO DAILY 12/28/16 Levofloxacin [Levaquin -] 500 mg PO DAILY@0600 #10 tablet 12/30/16 Tamsulosin HCl [Flomax -] 0.4 mg PO DAILY@0830 #30 cap.er.24h 12/30/16 Problem List - Problems (1) Pyelonephritis Code(s): N12 - TUBULO-INTERSTITIAL NEPHRITIS, NOT SPCF ACUTE OR CHRONIC (2) Sepsis Code(s): A41.9 - SEPSIS, UNSPECIFIED ORGANISM Qualifiers: Sepsis type: sepsis due to unspecified organism Qualified Code(s): A41.9 - Sepsis, unspecified organism (3) DVT prophylaxis Code(s): [id number] - This patient is new to me today: No Emergency Visit: Yes ED Registration Date: 12/27/16 Care time: The patient presented to the Emergency Department on the above date and was hospitalized for further evaluation of their emergent condition. Critical Care patient: No - Discharge Referral Referred to [facility] No
--- NOTE | 2016-12-30 16:38 | PN ---
Teaching Attending Note Name of Resident: Em Bolanos ATTENDING PHYSICIAN STATEMENT I saw and evaluated the patient. I reviewed the resident's note and discussed the case with the resident. I agree with the resident's findings and plan as documented. SUBJECTIVE:no pain , no fever , no nausea , reports constipation OBJECTIVE: Vital Signs Temperature 99.1 F 12/30/16 14:38 Pulse Rate 99 H 12/30/16 14:38 Respiratory Rate 18 12/30/16 14:38 Blood Pressure 129/84 12/30/16 14:38 O2 Sat by Pulse Oximetry (%) 100 12/29/16 09:00 no cva tenderness ASSESSMENT AND PLAN: acute pyelonephritis- resolved, afebrile , no pain , no leukocytosis. CT - mild left hydro, 1-2 mm stone distal urether likely passed a stone or fragment of it to d/c home complete course of PO levaquin per ID return if fever or pain occurs F/U with urology
== END 2016-12-30 16:43 | disposition home or self-care (01) | DRG 872 ==
LOC: JER 13:44 → JERBED 18:22 → UNDOADMIN 19:25 → JERBED 19:25 → J7W 12-28 03:33
PROVIDERS: ADMIT Internal Medicine; ATTEND Internal Medicine
DX: A41.9 Sepsis, unspecified organism (principal); N10 Acute pyelonephritis; N13.30 Unspecified hydronephrosis; N13.2 Hydronephrosis with renal and ureteral calculous obstruction; N39.0 Urinary tract infection, site not specified; D64.9 Anemia, unspecified; D25.9 Leiomyoma of uterus, unspecified; B96.20 Unspecified Escherichia coli [E. coli] as the cause of diseases classified elsewhere
CPT/HCPCS: 36415; 71010-TC; 74176-TC; 76775-TC; 80048; 80053; 81003; 81015; 83605; 83735; 84100; 84703; 85025; 85027; 87040; 87086; 87186; 93005; 93010; 97116-GP; 97161-GP; 99283-25

== ENCOUNTER 2018-03-13 11:07 | Emergency (ER) | payer OTHER ==
[2018-03-13 11:12] VITALS: BP 152/96; PULSE 111; TEMP 98.3; BMI 28.3
--- NOTE | 2018-03-13 12:17 | PDOC ---
Attending Attestation - Resident Resident Name: Ac Brandt - HPI HPI: 03/29/18 21:28 Pt presents to the ED complaining of multiple episodes of profuse watery diarrhea and lower abdominal pain. Denies nausea or vomiting. Complains of one episode of blood tinged stool. - Physicial Exam PE: 03/29/18 21:33 Agree with resident's exam. Abdomen is minimally tender to deep palpation on my exam. Patient is not tachycardic on my exam. - Medical Decision Making 03/29/18 21:33 Pt presents to the ED complaining of watery diarrhea, with a single episode of blood tinged stool. Denies fever, nausea or vomiting. Abdomen is only minimally tender. Patient is guiac negative, labs show stable anemia. Will discharge home with follow up with PMD.
[2018-03-13] MEDS ORDERED: SODIUM CHLORIDE 0.9% 1000 ML INFUS.BAG IV ONE (12:52)
--- NOTE | 2018-03-13 13:40 | PDOC ---
History of Present Illness - General Chief Complaint: Pain Stated Complaint: LT SIDE PAIN Time Seen by Provider: 03/13/18 12:15 History Source: Patient Exam Limitations: No Limitations - History of Present Illness Initial Comments: 03/13/18 13:20 The patient is a 43F with no PMH who presents with abdominal pain. The patient states that she has had abdominal for "a few months" which is located in her LLQ and L flank. The pain is constant, sharp but intermittently gets worse. Nothing makes it feel better or worse. She states that she has seen a GI doctor for this pain and he has prescribed Miralax for 6 months. She states that last night, she had 3 episodes of watery diarrhea followed by 1 episode of bloody diarrhea. These all occurred between midnight and 0230. She denies any recent antibiotic use, fever, chills, nausea, vomiting, vaginal bleeding or discharge. Past History - Past Medical History Allergies/Adverse Reactions: Allergies Allergy/AdvReac Type Severity Reaction Status Date / Time No Known Allergies Allergy Verified 03/13/18 11:08 Home Medications: Ambulatory Orders Iron 1 tab PO DAILY 12/28/16 Miscellaneous Drug Not In Syst [Outpatient Lab Test] 1 each ASDIR #1 misc Tamsulosin HCl [Flomax -] 0.4 mg PO DAILY@0830 #30 cap.er.24h 12/30/16 levoFLOXacin [Levaquin -] 500 mg PO DAILY@0600 #10 tablet 12/30/16 COPD: No HTN: Yes (BORDER LINE NO MEDS) - Surgical History Abdominal Surgery: Yes (D&C) - Suicide/Smoking/Psychosocial Hx Smoking History: Never smoked Have you smoked in the past 12 months: No Information on smoking cessation initiated: No Hx Alcohol Use: No Drug/Substance Use Hx: No Substance Use Type: Alcohol Review of Systems - Review of Systems Able to Perform ROS?: Yes Comments:: 03/13/18 13:40 GENERAL/CONSTITUTIONAL: No fever or chills. No weakness. HEAD, EYES, EARS, NOSE AND THROAT: No change in vision. No ear pain or discharge. No sore throat. CARDIOVASCULAR: No chest pain, palpitations, or lightheadedness. RESPIRATORY: No cough, wheezing, shortness of breath, or hemoptysis. GASTROINTESTINAL: Positive for diarrhea, bloody diarrhea, and abdominal pain. No nausea or vomiting. GENITOURINARY: No dysuria, frequency, hematuria, or change in urination. MUSCULOSKELETAL: No joint or muscle swelling or pain. No neck or back pain. SKIN: No rash or lesions. NEUROLOGIC: No headache, numbness, tingling, weakness, loss of consciousness, or change in strength/sensation. ENDOCRINE: No increased thirst. No abnormal weight change. HEMATOLOGIC/LYMPHATIC: No anemia, easy bleeding, or history of blood clots. ALLERGIC/IMMUNOLOGIC: No hives or skin allergy. Is the patient limited Ukrainian proficient: No *Physical Exam - Vital Signs Last Vital Signs Temp Pulse Resp BP Pulse Ox 98.3 F 111 H 18 152/96 03/13/18 11:09 03/13/18 11:09 03/13/18 11:09 03/13/18 11:09 - Physical Exam Comments: 03/13/18 13:43 GENERAL: Well developed, well nourished. Awake and alert. No acute distress. HEENT: Normocephalic, atraumatic. Hearing grossly normal. Moist mucous membranes. PERRLA, EOMI. No conjunctival pallor. Sclera are non-icteric. NECK: Supple. Full ROM. No JVD. CARDIOVASCULAR: Regular rate and rhythm. No murmurs, rubs, or gallops. PULMONARY: No evidence of respiratory distress. Lungs clear to auscultation bilaterally. No wheezing, rales or rhonchi. ABDOMINAL: Soft. Tender to deep palpation over LLQ. Non-distended. No rebound or guarding. GENITOURINARY: No CVA tenderness bilaterally. MUSCULOSKELETAL: Normal range of motion at all joints. No bony deformities or tenderness. EXTREMITIES: No cyanosis. No clubbing. No edema. No calf tenderness. SKIN: Warm and dry. Normal capillary refill. No rashes. No jaundice. NEUROLOGICAL: Alert, awake, appropriate. Cranial nerves 2-12 intact. Normal speech. PSYCHIATRIC: Cooperative. Good eye contact. Appropriate mood and affect. ED Treatment Course - LABORATORY CBC & Chemistry Diagram: 03/13/18 13:25 03/13/18 13:25 Medical Decision Making - Medical Decision Making 03/13/18 13:46 The patient is a 43F with no PMH who presents with bloody diarrhea after having 3 episodes of watery diarrhea. I have lower concern for diverticula or mesenteric ischemia 2/2 to the patient's medical history. Of note, she had a previous CT which showed "mild diverticula" in her sigmoid colon. Will order basic labs to check for Hgb and electrolyte status and give NS. 03/13/18 15:03 CBC significant for anemia of 7.9 which is stable from previous labs. Occult blood is negative. Electrolytes are stable. Pt agrees to d/c home and f/u with PCP and GI. *DC/Admit/Observation/Transfer Diagnosis at time of Disposition: Abdominal pain Qualifiers: Abdominal location: left lower quadrant Qualified Code(s): R10.32 - Left lower quadrant pain - Discharge Dispostion Disposition: HOME Condition at time of disposition: Stable Decision to Admit order: No - Referrals Referrals: Elias Morales MD [Primary Care Provider] - - Patient Instructions Printed Discharge Instructions: DI for Viral Gastroenteritis -- Adult Additional Instructions: Please return to the ER if you have any signs or symptoms of chest pain, shortness of breath, uncontrollable fever, chills, nausea, vomiting, numbness, tingling, or weakness in any part of your body, changes in vision, or slurred speech. Please follow up with your primary care physician in 2-3 days. Also, please follow up with your GI doctor in 2-3 days. Please return to the ER if symptoms persist, worsen, or new symptoms arise. - Post Discharge Activity
[2018-03-13 13:46] LABS: BASO % 0.5 % (0-2.0); EOS % 1.8 % (0-4.5); HEMATOCRIT 25.6 % (32.4-45.2); HEMOGLOBIN 7.9 GM/dL (10.7-15.3); LYMPH % 20.9 % (8-40); MCH 20.2 pg (25.7-33.7); MCHC 30.8 g/dl (32.0-36.0); MEAN CELL VOLUME 65.6 fl (80-96); MEAN PLT VOLUME 8.1 fl (7.5-11.1); MONO % 9.8 % (3.8-10.2); PLATELET COUNT 552 K/MM3 (134-434); RBC 3.91 M/mm3 (3.60-5.2); RDW 19.6 % (11.6-15.6); WHITE BLOOD COUNT 7.1 K/mm3 (4.0-10.0)
[2018-03-13 14:04] LABS: HCG,QUALITATIVE URINE NEGATIVE
[2018-03-13 14:05] LABS: URINE APPEARANCE CLEAR; URINE BILIRUBIN NEGATIVE (<2.0 mg/dL); URINE COLOR LTYELLOW; URINE GLUCOSE (UA) NEGATIVE (NEGATIVE); URINE KETONE NEGATIVE (NEGATIVE); URINE LEUK ESTERASE NEGATIVE (NEGATIVE); URINE NITRITE NEGATIVE (NEGATIVE); URINE PROTEIN NEGATIVE (NEGATIVE); URINE UROBILINOGEN NEGATIVE mg/dL (0.2-1.0)
[2018-03-13 14:05] LABS: CHLORIDE 104 mmol/L (98-107); POTASSIUM 4.2 mmol/L (3.5-5.1); SODIUM 137 mmol/L (136-145)
[2018-03-13 14:16] LABS: ALBUMIN 3.5 g/dl (3.4-5.0); ALK PHOS 68 U/L (45-117); ANION GAP 6 (8-16); BILIRUBIN,TOTAL 0.4 mg/dL (0.2-1.0); BLOOD UREA NITROGEN 8 mg/dL (7-18); CALCIUM 8.6 mg/dL (8.5-10.1); CO2 27 mmol/L (21-32); CREATININE 0.6 mg/dL (0.55-1.02); GLUCOSE,RANDOM 86 mg/dL (74-106); SGOT/AST 14 U/L (15-37); SGPT/ALT 16 U/L (12-78)
== END 2018-03-13 15:14 | disposition home or self-care (01) ==
LOC: JER 11:07
PROC: 3E0337Z Introduction of Electrolytic and Water Balance Substance into Peripheral Vein, Percutaneous Approach (ICD-10-PCS; principal; 2018-03-13)
DX: A08.4 Viral intestinal infection, unspecified (principal); B97.89 Other viral agents as the cause of diseases classified elsewhere
CPT/HCPCS: 36415; 80053; 81003; 82272; 84703; 85025; 99282-25; J7030